=== PATIENT | female | born 1960 | race Caucasian/White ===

== ENCOUNTER → 2023-05-27 08:30 | Outpatient (BNV) | payer OTHER, SELFPAY | PROVIDERS: Visit Provider Psychiatry & Neurology Psychiatry | DX: F43.11 Post-traumatic stress disorder, acute (principal) | CPT/HCPCS: 99202; 99204; 99212; 99213 ==

== ENCOUNTER 2023-06-06 09:30 | Outpatient (RCR) | payer MEDICAID, SELFPAY ==
[2023-05-26 10:38] VITALS: BP 131/79; PULSE 64; TEMP 36.6
--- NOTE | 2023-05-26 11:31 | PC.ADMIT ---
Patient is a 63 year old female who self referred to PHP d/t increased depression, anxiety, PTSD sxs and wanting support for continued sobriety. She reports she has been sober from opiates specifically Oxycontin for 5 years and is on medication assisted treatment with Suboxone. She also reports being sober from ETOH since 2017. She denied any cravings at present. Attends weekly support groups through [facility] program. Patient struggling with marital problems and her mental health. She is feeling overwhelmed with many issues including looking into getting a divorce from her of 37 years and selling her home. She reports her is having an affair with a transgender male and she does not know how to cope with this. She reports he is doing things that are uncharacteristic of him including painting his nails. She also stated her adult children are also struggling. She currently is living with her who refuses to leave the home. See Integrative assessment for more information. 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 Erica is alert and oriented x4. Calm and Cooperative. She presents with depressed mood and affect. Denied SI. I gave her a copy of her safety plan if needed and I reviewed this with her. Medications reconciled with patient and patient's pharmacy. Her Doxepin prescription has recently been increased from 10 mg to 25 mg at HS to help her sleep and Lorazepam was increased from 1 mg to 2 mg PRN for anxiety and sleep however Erica stated she is taking a 1/2 of a tab and finds this to be effective.
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
--- NOTE | 2023-05-28 14:30 | HO.PHP ---
I walked the client to financial services to have them help he sign up for [facility] as she now has health safety net.
--- NOTE | 2023-05-30 08:25 | HO.PHP ---
The clients case was reviewed and opened in treatment team.
--- NOTE | 2023-06-02 10:13 | HO.PHPPROGNO ---
Subjective Subjective Date of Service: 06/02/23 Reason For Visit: anxiety Healthcare Proxy: No Guardianship: No Medical Problems Affecting Mental Status: No Interim History: This is a follow-up visit with Elicia whom I had seen last week. She is doing well in the program and has found it to be quite beneficial. She talked about the areas that she has been able to gain some new ways of dealing with. She has been sleeping very well with trazodone 50 mg with no side effects. She continues with her Wellbutrin. She is ending the program this week and I will send in another month's worth of medications so she has that available before she meets with her PCP who has been doing her medications. Medication Compliance: Yes Side effects from medications: No Review of Systems Review of Systems Yes all other systems are reviewed and are negative Mental Status Exam Mental Status Exam Narrative: She was seen today for the evaluation. She is alert, oriented and pleasant. Normal speech. Good eye contact. Affect is appropriate and varied. No signs of psychosis. No active SI/HI. No suicidal or homicidal ideations. Cognitively is intact and of above average intelligence with good insight. Judgment is intact. No musculoskeletal difficulties. No abnormalities of gait Assessment & Plan Assessment & Plan (1) PTSD (post-traumatic stress disorder): Status: Acute Code(s): F43.10 - Post-traumatic stress disorder, unspecified Plan Continue partial hospital program to its completion at the end of this week. Continue current medications including trazodone. She will follow-up with her PCP Patient educated on: medication risk/benefits Certification I certify that partial hospital treatment is medically necessary due to the symptoms and problems resulting from the patient's mental illness and the failure to treat the patient at the partial hospital level of care would likely result in the patient requiring inpatient psychiatric care which could not be prevented at a less intensive level of care. Total time managing care of this patient today ____ minutes. Discharge Plan Discharge Attending provider: Alexei Camarena Medications: Continued trazodone 50 mg tablet 50 mg PO BEDTIME Qty: 30 0RF No Action citalopram 40 mg tablet 40 mg PO QAM doxepin 10 mg capsule 25 mg PO BEDTIME buspirone 30 mg tablet 30 mg PO BID bupropion HCl 150 mg tablet extended release 24 hr 150 mg PO QAM buprenorphine-naloxone [Suboxone] 2-0.5 mg film 1 mg sublingual DAILY lorazepam 1 mg Tablet 2 mg PO DAILY PRN (Reason: Anxiety) Patient Comments: Recnetly increased to two tabs prn. Patient takes 1/2 of a tab and finds effective. . Rx Instructions: Take daily PRN for anxiety or Insomnia.
[2023-06-02 15:04] LABS: Amphetamine Screen Urine Not Detected (Not Detect); Barbiturates, Urine Not Detected (Not Detect); Benzodiazepines Screen Urine Not Detected (Not Detect); Cannabinoid Screen Urine POSITIVE (Not Detect); Cocaine Screen Urine Not Detected (Not Detect); Fentanyl, urine Not Detected (Not Detect); Opiate Screen Urine Not Detected (Not Detect); Phencyclidine Screen Urine Not Detected (Not Detect)
--- NOTE | 2023-06-06 11:04 | HO.PHPPROGNO ---
Subjective Subjective Date of Service: 06/06/23 Reason For Visit: anxiety Interim History: Dhara is seen for a follow-up visit on her discharge today from [facility]. She states that the program was extremely helpful to her and talked about the ways that she benefited, gaining new ways of coping and dealing with her difficulties. Current medications were individually reviewed and she will maintain them. She sees her doctor in early June. Trazodone at 150 mg allows her to sleep adequately except for interruptions and she is able to go back to sleep easily and I did not recommend increasing the dose. Medication Compliance: Yes Side effects from medications: No Attending Groups: Yes Review of Systems Review of Systems Yes all other systems are reviewed and are negative Mental Status Exam Mental Status Exam Narrative: She was seen today for the evaluation. She is alert, oriented and pleasant. Normal speech. Good eye contact. Affect is appropriate and varied. No signs of psychosis. No active SI/HI. No suicidal or homicidal ideations. Cognitively is intact and of above average intelligence with good insight. Judgment is intact. No musculoskeletal difficulties. No abnormalities of gait Assessment & Plan Assessment & Plan (1) PTSD (post-traumatic stress disorder): Status: Acute Code(s): F43.10 - Post-traumatic stress disorder, unspecified Plan She will be discharging from [facility] today. She will continue her current regimen and will follow-up with her doctor at [facility] Patient educated on: medication risk/benefits Certification I certify that partial hospital treatment is medically necessary due to the symptoms and problems resulting from the patient's mental illness and the failure to treat the patient at the partial hospital level of care would likely result in the patient requiring inpatient psychiatric care which could not be prevented at a less intensive level of care. Total time managing care of this patient today ____ minutes. Discharge Plan Discharge Attending provider: Alexei Camarena Medications: Continued trazodone 50 mg tablet 50 mg PO BEDTIME Qty: 30 0RF No Action citalopram 40 mg tablet 40 mg PO QAM doxepin 10 mg capsule 25 mg PO BEDTIME buspirone 30 mg tablet 30 mg PO BID bupropion HCl 150 mg tablet extended release 24 hr 150 mg PO QAM buprenorphine-naloxone [Suboxone] 2-0.5 mg film 1 mg sublingual DAILY lorazepam 1 mg Tablet 2 mg PO DAILY PRN (Reason: Anxiety) Patient Comments: Recnetly increased to two tabs prn. Patient takes 1/2 of a tab and finds effective. . Rx Instructions: Take daily PRN for anxiety or Insomnia.
--- NOTE | 2023-06-06 15:40 | PC.NURSE ---
Patient discharged from [facility] on 06/06/2023. Discharge routine. Discharge to out patient providers. Patient states she is ready for discharge, denies HI/SI with no plan, no intent. Discharge plan including discharge medications reviewed with patient who verbalized understanding. Copy of discharge plan and discharge medication list given to patient. Copy of discharge medication list sent to out patient provider.
== END 2023-06-06 23:59 | disposition home or self-care (01) ==
LOC: HO.PHPA 09:30
PROVIDERS: Psychiatry & Neurology Psychiatry; Visit Provider Psychiatry & Neurology Psychiatry
DX: F43.10 Post-traumatic stress disorder, unspecified (principal)
CPT/HCPCS: 80307; 90791; 90853